=== PATIENT | male | born 2000 | race Two or more races ===

== ENCOUNTER 2018-07-02 12:24 | Emergency (ER) | payer BC, OTHER ==
--- OUTSIDE RECORDS SUMMARY | 2018-07-02 12:39 | XMS REPORT | Continuity of Care Document ---
:2000 External Reference #:[id number] Author Name Hector Rodriguez M.D. Address [address] [place] [address] Care Team Providers Name Role Phone Chris Diaz M.D. Primary Care Physician Unavailable Payers Date Identification Numbers Payment Provider Subscriber Effective: Policy Number: [employer] Kailashalba Nowak 2013 [id number] PayID: [id number] [address] [address] [place] [address] Effective: 2013 Policy Number: [id number] [facility] Marino Nowak PayID: [id number] [address] [place] [address] Advance Directives Description No Information Available Problems Description No Active Problems Family History Description No Information Available Social History Type Date Description Comments Sex Unknown ETOH Use Denies alcohol use Tobacco Use Start: Unknown Patient has never smoked Recreational Drug Use Denies Drug Use Smoking Status Reviewed: 06/30/18 Patient has never smoked Currently Active Patient is currently sexually active Condom Use Always # Partners in a Lifetime 2 Allergies, Adverse Reactions, Alerts Date Description Reaction Status Severity Comments 01/30/2014 Amoxicillin Urticaria Active Moderate 01/30/2014 Cephalexin Rash Active Mild Medications Medication Date Status Form Strength Qnty SIG Indications Ordering Provider No Active 09/17 Active Unknown Medications Azithromycin 09/07 Hx Tablets 500mg 5tabs one tablet J02.0 Valarie daily x 5 Uphoff, - days M.D. 09/16 Benzaclin 02/05 Hx Gel 1-5% 25gm apply to L70.0 affected Snedeker, - area twice M.D. 02/08 a day /2015 Retin-A 01/30 Hx Cream 0.05% 30gm apply to V20.2 Chris affected Snever, - area every M.D. 02/04 day at bedtime Tretinoin 01/26 Hx Cream 0.025% Every Day - 11/19 Claritin Hx Tablets 10mg take one Unknown /0000 tablet - daily as 02/08 needed for 2016 seasonal allergies Chlorpheniramine Hx Tablets 12mg 1 tab prn Unknown Maleate ER /0000 ER - 09/16 Medications Administered in Office Medication Date Status Form Strength Qnty SIG Indications Ordering Provider Immunization 12/10/ Administered Injection Nursing Administration 2017 Single Or Combination Immunization 11/08/ Administered Injection Chris Administration 2017 Emily Single Or M.D. Combination Immunization 02/09/ Administered Injection Narendra Adminstration 2+ 2015 Felder, Single Or M.D. Combination Immunization 02/09/ Administered Injection Narendra Administration 2015 Bradford Single Or M.D. Combination Immunization 02/05/ Administered Injection Chris Administration 2014 Emily Single Or M.D. Combination Immunization 04/02/ Administered Injection Nursing Administration 2013 Single Or Combination Immunizations CPT Code Status Date Vaccine Lot # [id number] Given 01/24/2018 Flu Quadrivalent [id number] Given 12/10/2017 Meningococcal B Vaccine [id number] 44612 Given 11/08/2017 Meningococcal B Vaccine [id number] 51135 Given 12/10/2016 Flu Quadrivalent 40967 Given 02/10/2016 Meningococcal Vaccine (Any Groups) For [id number] Subcutaneous Use 52840 Given 02/10/2016 Flu Quadrivalent [id number] 75623 Given 02/05/2015 Flu Quadrivalent [id number] 29332 Given 04/02/2014 Flu Quadrivalent [id number] 53192 Given 01/26/2013 Influenza Virus Vaccine, Split Virus, 6-35 Months Age Intramuscul 87147 Given 07/22/2012 Gardasil 56006 Given 03/23/2012 Gardasil 95387 Given 01/19/2012 Influenza Virus Vaccine, Split Virus, 6-35 Months Age Intramuscul 55257 Given 01/19/2012 Gardasil 94558 Given 01/06/2011 Influenza Virus Vaccine Intranasal 54415 Given 01/01/2010 Influenza Virus Vaccine Intranasal 78306 Given 10/02/2009 Menactra 00960 Given 10/02/2009 Tdap 74315 Given 10/02/2009 Typhoid Injectable 24851 Given 10/02/2009 Hepatitis A Pediatric 85617 Given 02/27/2009 Influenza Virus Vaccine, Pandemic Formulation, Live, Intranasal 55847 Given 2008 Hepatitis A Pediatric 15310 Given 2008 Influenza Virus Vaccine Intranasal 95555 Given 2008 Varicella (Chicken Pox) Vaccine 72647 Given 12/03/2003 Polio Injectable 54250 Given 12/03/2003 MMR Vaccine, Live, For Subcutaneous Use 55563 Given 12/03/2003 DTaP Vaccine Younger Than 7 06841 Given 04/25/2002 Prevnar 13 89449 Given 02/04/2000 DTaP Vaccine Younger Than 7 04569 Given 02/04/2000 Hib Vaccine 27133 Given 11/03/1999 Varicella (Chicken Pox) Vaccine 53745 Given 11/03/1999 Polio Injectable 49284 Given 11/03/1999 MMR Vaccine, Live, For Subcutaneous Use 46460 Given 05/01/1999 Hib Vaccine 18551 Given 05/01/1999 DTaP Vaccine Younger Than 7 48702 Given 05/01/1999 Hepatitis B Vaccine Pediatric/Adolescent 80093 Given 03/11/1999 Hepatitis B Vaccine Pediatric/Adolescent 72237 Given 03/11/1999 Polio Injectable 15137 Given 03/11/1999 DTaP Vaccine Younger Than 7 86819 Given 03/11/1999 Hib Vaccine 19406 Given 1998 Polio Injectable 55761 Given 1998 DTaP Vaccine Younger Than 7 91462 Given 1998 Hib Vaccine 73119 Given 1998 Hepatitis B Vaccine Pediatric/Adolescent Vital Signs Date Vital Result Comment 06/30/2018 10:17am Body Temperature 99.8 F Heart Rate 78 /min Respiratory Rate 12 /min BP Systolic 122 mmHg BP Diastolic 70 mmHg Weight 177.50 lb Weight 80.514 kg Height 70 inches 5'10" BMI (Body Mass Index) 25.5 kg/m2 Body Mass Index Percentile 77 % Height Percentile 56 % Weight Percentile 79th 11/08/2017 2:20pm Body Temperature 98.4 F Heart Rate 64 /min Respiratory Rate 18 /min BP Systolic 130 mmHg BP Diastolic 56 mmHg Weight 182.12 lb Weight 82.612 kg Height 69.6 inches 5'9.60" BMI (Body Mass Index) 26.4 kg/m2 Body Mass Index Percentile 85 % Height Percentile 51 % Weight Percentile 85th 09/17/2017 9:21am Body Temperature 98.8 F Heart Rate 75 /min Respiratory Rate 12 /min BP Systolic 119 mmHg BP Diastolic 70 mmHg Blood Pressure Percentile 37 % Weight 172.00 lb Weight 78.019 kg Height 70 inches 5'10" BMI (Body Mass Index) 24.7 kg/m2 Body Mass Index Percentile 75 % Height Percentile 57 % Weight Percentile 77th 09/07/2017 9:16am Body Temperature 98.3 F Heart Rate 83 /min Respiratory Rate 14 /min BP Systolic 128 mmHg BP Diastolic 72 mmHg Blood Pressure Percentile 0 % Weight 178.00 lb Weight 80.741 kg Height Percentile 3 % Weight Percentile 82nd 05/29/2017 8:50am Body Temperature 97.9 F Heart Rate 70 /min Respiratory Rate 14 /min BP Systolic 130 mmHg BP Diastolic 78 mmHg Blood Pressure Percentile 0 % Weight 172.75 lb Weight 78.359 kg Weight Percentile 79th 02/10/2016 10:31am Body Temperature 98.7 F Heart Rate 59 /min Respiratory Rate 12 /min BP Systolic 117 mmHg BP Diastolic 68 mmHg Blood Pressure Percentile 38 % Weight 155.50 lb Weight 70.535 kg Height 69.75 inches 5'9.75" BMI (Body Mass Index) 22.5 kg/m2 Body Mass Index Percentile 64 % Height Percentile 59 % Weight Percentile 67th 02/05/2015 11:27am Body Temperature 98.3 F Heart Rate 61 /min Respiratory Rate 12 /min BP Systolic 113 mmHg BP Diastolic 64 mmHg Blood Pressure Percentile 32 % Weight 156.38 lb Weight 70.932 kg Height 69.25 inches 5'9.25" BMI (Body Mass Index) 22.9 kg/m2 Body Mass Index Percentile 75 % Height Percentile 60 % Weight Percentile 77th 01/30/2014 9:35am Body Temperature 98.7 F Heart Rate 62 /min Respiratory Rate 12 /min BP Systolic 124 mmHg BP Diastolic 70 mmHg Blood Pressure Percentile 76 % Weight 145.88 lb Weight 66.169 kg Height 69 inches 5'9" BMI (Body Mass Index) 21.5 kg/m2 Body Mass Index Percentile 69 % Height Percentile 71 % Weight Percentile 77th 01/26/2013 12:00pm Heart Rate 76 /min Respiratory Rate 22 /min BP Systolic 120 mmHg BP Diastolic 68 mmHg Weight 140.00 lb Height 68.5 inches 01/19/2012 12:00pm Heart Rate 70 /min Respiratory Rate 12 /min BP Systolic 112 mmHg BP Diastolic 65 mmHg Weight 116.12 lb Height 65.25 inches 01/06/2011 12:00pm Heart Rate 84 /min Respiratory Rate 16 /min BP Systolic 116 mmHg BP Diastolic 69 mmHg Weight 94.19 lb Height 60 inches 01/01/2010 12:00pm Heart Rate 88 /min Respiratory Rate 12 /min BP Systolic 100 mmHg BP Diastolic 58 mmHg Weight 86.25 lb Height 57.25 inches 10/02/2009 12:00pm Heart Rate 68 /min Respiratory Rate 12 /min BP Systolic 112 mmHg BP Diastolic 70 mmHg Weight 79.00 lb 03/20/2009 11:00am Heart Rate 86 /min Respiratory Rate 20 /min BP Systolic 106 mmHg BP Diastolic 70 mmHg Weight 73.00 lb 2008 12:00pm Heart Rate 88 /min Respiratory Rate 16 /min BP Systolic 112 mmHg BP Diastolic 68 mmHg Weight 76.75 lb Height 55 inches 01/18/2008 12:00pm Heart Rate 78 /min Respiratory Rate 18 /min BP Systolic 98 mmHg BP Diastolic 50 mmHg Weight 67.50 lb 12/16/2007 12:00pm Heart Rate 90 /min Respiratory Rate 18 /min BP Systolic 92 mmHg BP Diastolic 64 mmHg Weight 66.75 lb Height 53.5 inches 06/21/2007 11:00am Heart Rate 100 /min Respiratory Rate 20 /min BP Systolic 90 mmHg BP Diastolic 70 mmHg Weight 62.00 lb 12/14/2006 12:00pm Heart Rate 98 /min Respiratory Rate 14 /min BP Systolic 110 mmHg BP Diastolic 60 mmHg Weight 60.00 lb Height 50.75 inches 04/21/2006 11:00am Heart Rate 80 /min Respiratory Rate 12 /min BP Systolic 88 mmHg BP Diastolic 60 mmHg Weight 56.50 lb 03/27/2006 11:00am Heart Rate 88 /min Respiratory Rate 20 /min BP Systolic 86 mmHg BP Diastolic 54 mmHg Weight 55.25 lb 12/09/2005 12:00pm Heart Rate 92 /min Respiratory Rate 20 /min BP Systolic 84 mmHg BP Diastolic 60 mmHg Weight 54.00 lb Height 48.5 inches 10/19/2005 12:00pm Heart Rate 112 /min Respiratory Rate 24 /min BP Systolic 100 mmHg BP Diastolic 58 mmHg Weight 51.75 lb Results Test Date Facility Test Result H/L Range Note CBC Auto Diff 06/30/2018 [facility] White Blood 5.3 10^3/uL N 3.5-10.[address] [place] [address] Red Blood Count 5.01 10^6/uL N 4.18-5.48 Hemoglobin 15.5 g/dL N 14.0-18.0 Hematocrit 45 % N 36-46 Mean Corpuscular Volume 90 fL N 80-94 Mean Corpuscular Hemoglobin 31 pg N 27-31 Mean Corpuscular HGB Conc 34 g/dL N 31-36 Red Cell Distribution Width 13 % N 10.5-15 Platelet Count 183 10^3/uL N 150-450 Mean Platelet Volume 8.3 fL N 7.4-10.4 Abs Neutrophils 3.4 10^3/uL N 1.5-7.7 Abs Lymphocytes 0.8 10^3/uL Low 1.0-4.8 Abs Monocytes 1.0 10^3/uL High 0-0.8 Abs Eosinophils 0 10^3/uL N 0-0.6 Abs Basophils 0 10^3/uL N 0-0.2 Abs Nucleated RBC 0 10^3/uL Granulocyte % 64.4 % Lymphocyte % 15.4 % Monocyte % 19.5 % Eosinophil % 0.1 % Basophil % 0.6 % Nucleated Red Blood Cells % 0.1 Laboratory test 06/30/2018 [facility] C Reactive 8.33 mg/L High <8.[address] [place] [address] Laboratory test 06/30/2018 [facility] Creatine 539 U/L High 10 -[address] Kinase([place]) [place] [address] Comp Metabolic 06/30/2018 [facility] Sodium 137 mmol/L N 135- [address] [place] [address] Potassium 4.4 mmol/L N 3.5-5.0 Chloride 104 mmol/L N 101-111 Co2 Carbon Dioxide 27 mmol/L N 22-32 Anion Gap 6 mmol/L N 2-11 Glucose 103 mg/dL High 70-100 Blood Urea Nitrogen 13 mg/dL N 6-24 Creatinine 1.41 mg/dL High 0.67-1.17 BUN/Creatinine Ratio 9.2 N 8-20 Calcium 9.3 mg/dL N 8.6-10.3 Total Protein 6.5 g/dL N 6.4-8.9 Albumin 4.5 g/dL N 3.2-5.2 Globulin 2.0 g/dL N 2-4 Albumin/Globulin Ratio 2.3 N 1-3 Total Bilirubin 0.70 mg/dL N 0.2-1.0 Alkaline Phosphatase 52 U/L N 34-104 Alt 19 U/L N 7-52 Ast 26 U/L N 13-39 Egfr Non- 64.8 >60 Egfr 78.3 >60 1 Laboratory test 06/30/2018 [facility] Monospot Negative Negative [address] [place] [address] Laboratory test 09/07/2017 [facility] .Quick Strep PCR + finding [address] [place] [address] [phone] Brian Menchaca 06/04/2017 [facility] Z#Other <pending> Evaluation Observations Vitamin D 1,25 + 06/04/2017 [facility] Vitamid D,25 <pending> 25 Hydroxy Hydroxy Vitamin D 1,25 Dihydroxy <pending> Lyme Disease SCRN 06/04/2017 [facility] Misc Test - Put Test <pending > With Confirm In Order TSH+Free T4 06/04/2017 [facility] TSH Thyroid <pending> Stimulating Horm T4 Free Thyroxine Mass/Vol <pending> Laboratory test 06/04/2017 [facility] Esr Sedimentation <pending> finding Rate C-Reactive Protein <pending> CMP Panel (14 Test) 06/04/2017 [facility] Albumin <pending> Alt - SGPT <pending> Calcium <pending> Carbon Dioxide <pending> Chloride <pending> Creatinine <pending> Glucose Serum <pending> Alkaline Phosphatase <pending> Potassium <pending> Protein Total <pending> Sodium <pending> Ast - Sgot <pending> BUN - Urea Nitrogen <pending> .CBC W/Auto Differential 06/04/2017 [facility] White Blood <pending> Count Absolute Lymphocytes <pending> Absolute Monocytes <pending> Absolute Neutrophils Auto CNT <pending> Lymph% <pending> [place]% Auto Count BLD <pending> Neutrophil % <pending> RBC Red Blood Count <pending> Hemoglobin Blood <pending> Hematocrit <pending> MCV (Corpuscular Volume) <pending> MCH (Corpuscular Hemoglobin) <pending> MCHC (Corpuscular Hemog Conc) <pending> RDW <pending> Platelet Count <pending> MPV <pending> .Cholesterol 02/10/2016 [facility] Cholesterol Total 180 Screening [address] Mass/[place] [address] [phone] HDL Cholesterol Mass/Vol 72 Triglycerides Ser/Plas Mass/VL 80 LDL Cholesterol Mass/Vol 93 Non-HDL Cholesterol QN Ser/PLS 109 LDL/HDL Ratio 1.3 Order 02/05/2015 [facility] EKG <pending> [address] [place] [address] [phone] .CBC W/Auto 01/30/2014 [facility] White Blood 5.9 Differential [address] [place] [address] Auto CNT [phone] Absolute Lymphocytes 2.2 Absolute Monocytes 0.7 Absolute Neutrophils Auto CNT 3.0 Lymph% 36.6 [place]% Auto Count BLD 11.8 Neutrophil % 51.6 RBC Red Blood Count 5.77 Hemoglobin Blood 18.4 Hematocrit 53.1 MCV (Corpuscular Volume) 92.0 MCH (Corpuscular Hemoglobin) 31.9 MCHC (Corpuscular Hemog Conc) 34.7 RDW 12.3 Platelet Count Blood Auto CNT 270. MPV 7.9 1 Because ethnic data is not always readily available, this report includes an eGFR for both -Americans and non- Americans. The National Kidney Disease Education Program (NKDEP) does not endorse the use of the MDRD equation for patients that are not between the ages of 18 and 70, are , have extremes of body size, muscle mass, or nutritional status, or are non- or non-. According to the National Kidney Foundation, irrespective of diagnosis, the stage of the disease is based on the level of kidney function: Stage Description GFR(mL/min/1.73 m(2)) 1 Kidney damage with normal or decreased GFR 90 2 Kidney damage with mild decrease in GFR 60-89 3 Moderate decrease in GFR 30-59 4 Severe decrease in GFR 15-29 5 Kidney failure <15 (or dialysis) 2 Would you like an EBV if Monospot is Negative?: Y Procedures Date Code Description Status 11/08/2017 21624 Vision Screening Completed 11/08/2017 16826 Admin Patient Focused Health Risk Assessment Instrument Completed 11/08/2017 14050 Brief Emotional/Behav Assessment W/ Scoring Doc Per Completed Standard Inst 11/08/2017 28554 Hearing Screen, Pure Tone, Air Completed 02/10/2016 03356 Vision Screening Completed 02/10/2016 47976 Hearing Screen, Pure Tone, Air Completed 02/10/2016 29042 Collection Of Capillary Blood Specimen Completed 02/05/2015 02509 Vision Screening Completed 02/05/2015 76275 Hearing Screen, Pure Tone, Air Completed 01/30/2014 02648 Vision Screening Completed 01/30/2014 73608 Hearing Screen, Pure Tone, Air Completed 01/30/2014 12686 Collection Of Capillary Blood Specimen Completed Encounters Type Date Location Provider Dx Diagnosis Office Visit 06/30/2018 [facility] Hector Rodriguez, R50.9 Fever, unspecified 11:00a M.D. Office Visit 11/08/2017 [facility] Chris Diaz Z00.00 Encntr for general 2:15p M.D. adult medical exam w/o abnormal findings Z13.89 Encounter for screening for other disorder Z71.89 Other specified counseling Office Visit 09/17/2017 9:30a [facility] Brenna R10.32 Left lower quadrant Rudert, [employer] pain Office Visit 09/07/2017 9:00a [facility] Valarie J02.0 Streptococcal Raine Cid pharyngitis Office Visit 05/29/2017 8:45a [facility] LAWRENCE Blakely R53.83 Other fatigue Office Visit 02/10/2016 11:00a [facility] Narendra Felder Z00.129 Encntr for routine M.D. child health exam w/o abnormal findings Office Visit 02/05/2015 11:30a [facility] Chris Z00.129 Encntr for routine Raine Diaz child health exam w/o abnormal findings R00.2 Palpitations L70.0 Acne vulgaris Office Visit 01/30/2014 9:30a [facility] Chris Diaz V20.2 Routine Infant Or M.D. Child Health Check 706.1 Acne Other 367.1 Myopia 850.9 Concussion Unspec v65.42 Counseling On Substance Use & Abuse Plan of Treatment 06/30/2018 - Hector Rodriguez M.D.R50.9 Fever, unspecifiedComments:Fever What is a fever?A fever means the body temperature is above normal. Your child has a fever if his:Rectal temperature is over 100.4F (38.0C).Oral temperature is over 99.5F (37.5C).Axillary (armpit) temperature is over 99.0F (37.2C).Ear (tympanic ) temperature is over 100.4F (38C). (This measuring method is not reliable for babies under 6 months old.)Pacifier temperature is over 100F (37.8C). ( Thepacifier thermometer works well for babies over 3 months old.)Tactile (touch ) fever is the impression that your child has a fever because he feels hot to the touch. Checking a fever this way is more accurate than we used to think. But if you're going to call the doctor, use a thermometer to measure the fever.The body's average temperature when it is measured orally is 97.6F (36.5C) . Oral temperature normally can change from a low of 95.8F (35.5C) in the morning to a high of 99.4F (37.5C) in the afternoon. Mildly increased temperature (100.4 to 101.3F, or 38 to 38.5C) can be caused by exercise, heavy clothing, a hot bath, or hot weather. Warm food or drink can also raise the oral temperature. If you suspect such an effect on the temperature of your child , take his temperature again in a half hour.What is the cause?Fever is a symptom , not a disease. It is the body's normal response to infections. Fever helps fight infections by turning on the body's immune system. Most fevers (100 to 104F, or 37.8 to 40C) that children get are not harmful. Most are caused by viral illnesses such as colds or the flu. Some are caused by bacterial illnesses such as Strep throat or bladder infections. Teething doesnot cause fever.How long will it last?Most fevers with viral illnesses range from 101F to 104F (38.3C to 40C) and last for 2 to 3 days. In general, the height of the fever doesn't relate to the seriousness of the illness. How sick your child acts is what counts. Fever does not cause permanent harm. Brain damage occurs only if the body temperature is over 108F (42C). Fortunately, the brain's thermostat keeps untreated fevers well below this level.While all children get fevers, only 4% develop a briefseizure from the fever. This type of seizure is generally harmless, but a child who has a febrile seizure should always be checked by a healthcare provider. If your child has had high fevers without seizures, your child is probably safe.How can I take care of my child?Extra fluids and less clothingEncourage your child to drink extra fluids, but do not force him to drink. Popsicles and iced drinks arehelpful. Body fluids are lost during fevers because of sweating.Bundling can be dangerous. Clothing should be kept to a minimum because most heat is lost through the skin. Do not bundle up your child; it will cause a higher fever. During the time your child feels cold or is shivering (the chills), give him a light blanket.If the fever is less than 102F this is the only treatment needed. Fever medicines are not necessary.Medicines to reduce feverRemember that fever is helping your child fight the infection. Fevers only need to be treated with medicine if they cause discomfort. That usually means fevers above 102F (39C).These medicines start working in about 30 minutes, and 2 hours after they are given, these drugs will reduce the fever 2F to 3F (1C to 2C). Medicines do not bring the temperature down to normal unless the temperature was not very high before the medicine was given. Repeated dosagesof the drugs will be necessary because the fever will go up and down until the illness runs its course. If your child is sleeping, don't awaken him for medicines.Acetaminophen: Children older than 3 months of age can be given acetaminophen (Tylenol). Give the correct dosage for your child's weight every 4 to 6 hours.Ibuprofen: Ibuprofen (Advil, Motrin) is similar to acetaminophen in its ability to lower fever. Its safety record is also similar. The FDA has approved it for infants over 6 months of age. One advantage ibuprofen has over acetaminophen is a longer lasting effect (6 to 8 hours instead of4 to 6 hours). Children with special problems requiring a longer period of fever control may do better with ibuprofen. Give the correct dosage for your child's weight every 6 to 8 hours.CAUTION: The dropper that comes with one product should not be used with other brands.Avoid aspirin: Doctors recommend that children (through age 21 years) not take aspirin if they have any symptoms of a cold or viralinfection, such as a fever, cough, or sore throat. Aspirin taken during a viral infection, such as chickenpox or flu, has been linked to a severe illness called Pepito's syndrome. If you have teens, warnthem to avoid aspirin.See also Dosage informationSpongingSponging is usually not necessary to reducefever. Never sponge your child without giving him acetaminophen or ibuprofen first. Sponge immediately only in situations such as heatstroke, delirium, a seizure from fever, or any fever over 106F ( 41.1C). In other cases sponge your child only if the fever is over 104F (40C), and hasn't come down whenyou take the temperature again 30 minutes after your child has taken acetaminophen or ibuprofen. Until acetaminophen or ibuprofen has taken effect (by resetting the body's thermostat to a lower level),sponging will just cause shivering which is the body's way of trying to raise the temperature.If youdo sponge your child, sponge him in lukewarm water (85 to 90F , or 29 to 32C). Use slightly cooler water for emergencies. Sponging works much faster than immersion, so sit your child in 2 inches of water and keep wetting the skin surface. Cooling comes from evaporation of water. If your child shivers , raise the water temperature or stop sponging until the acetaminophen or ibuprofen takes effect. Don'texpect to get the temperature down below 101F ( 38.3C). Don't add rubbing alcohol to the water; it can be breathed in and cause a coma.When should I call my child's healthcare provider?Call IMMEDIATELY if: Your child is less than 3 months old.The fever is over 104F (40C) and has not improved 2 hours after giving fever medicine.Your child looks or acts very sick (fever along with severe headache, confusion, stiff neck, trouble breathing, rash, or refusing to drink).Call within 24 hours if:Your child is3 to 6 months old (unless the fever is due to a DTaP shot).Your child has had a fever more than 24 hours without an obvious cause or location of infection AND your child is less than 2 years old.Your child has had a fever for more than 3 days.The fever went away for over 24 hours and then returned.Youhave other concerns or questions.Written by Rick Ortega MD, author of "Your Child's Health," [employer].Published by [employer].
--- OUTSIDE RECORDS SUMMARY | 2018-07-02 12:39 | XMS REPORT | Continuity of Care Document ---
:2000 External Reference #:[id number] Author Name Lisseth Tabor M.D. Address [address] [place] [address] Care Team Providers Name Role Phone Chris Diaz M.D. Primary Care Physician Unavailable Payers Date Identification Numbers Payment Provider Subscriber Effective: Policy Number: [employer] Alan Nowak 2013 [id number] PayID: [id number] [address] [address] [place] [address] Effective: 2013 Policy Number: [id number] [facility] Marino Nowak PayID: [id number] [address] [place] [address] Advance Directives Description No Information Available Problems [...] Form Strength Qnty SIG Indications Ordering Provider Tylenol Extra Active Tablets 500mg 2 tab by Unknown Strength /0000 mouth 07/02/18 0600 No Active 09/17 Hx Unknown Medications /2017 - 07/02 Azithromycin 09/07 Hx Tablets 500mg 5tabs one tablet J02.0 Valarie /2017 daily x 5 Uphoff, - days M.D. 09/16 Benzaclin 02/05 Hx Gel 1-5% 25gm apply to L70.0 Chris affected Emily, - area twice M.D. 02/08 a /2016 Retin-A 01/30 Hx Cream 0.05% 30gm apply to V20.2 affected Emily, - area every M.D. 02/04 day at /2014 bedtime Tretinoin 01/26 Hx Cream 0.025% Every Day - 11/19 Claritin Hx Tablets 10mg take one Unknown /0000 tablet - daily as 02/08 needed for seasonal allergies Chlorpheniramine Hx Tablets 12mg 1 tab prn Unknown Maleate ER /0000 ER - 09/16 Medications Administered in Office Medication Date Status Form Strength Qnty SIG Indications Ordering Provider Immunization 12/10/ Administered Injection Nursing Administration 2017 Single Or Combination Immunization 11/08/ Administered Injection Chris Administration 2017 Snedeker, Single Or M.D. Combination Immunization 02/09/ Administered Injection Narendra Adminstration 2+ 2015 Bradford Single Or M.D. Combination Immunization 02/09/ Administered Injection Narendra Administration 2015 Bradford Single Or M.D. Combination Immunization 02/05/ Administered Injection Chris Administration 2014 Snshadyr, Single Or M.D. Combination Immunization 04/02/ Administered Injection Nursing Administration 2013 Single Or Combination Immunizations CPT Code Status Date Vaccine Lot # [id number] Given 01/24/2018 Flu Quadrivalent 51140 Given 12/10/2017 Meningococcal B Vaccine [id number] 87818 Given 11/08/2017 Meningococcal B Vaccine [id number] 01786 Given 12/10/2016 Flu Quadrivalent 20302 Given 02/10/2016 Meningococcal Vaccine (Any Groups) For [id number] Subcutaneous Use 90420 Given 02/10/2016 Flu Quadrivalent [id number] 55899 Given 02/05/2015 Flu Quadrivalent [id number] 44029 Given 04/02/2014 Flu Quadrivalent [id number] 53456 Given 01/26/2013 Influenza Virus Vaccine, Split Virus, 6-35 Months Age Intramuscul 39101 Given 07/22/2012 Gardasil 08131 Given 03/23/2012 Gardasil 35581 Given 01/19/2012 Influenza Virus Vaccine, Split Virus, 6-35 Months Age Intramuscul 75409 Given 01/19/2012 Gardasil 88892 Given 01/06/2011 Influenza Virus Vaccine Intranasal 50686 Given 01/01/2010 Influenza Virus Vaccine Intranasal 43736 Given 10/02/2009 Menactra 42112 Given 10/02/2009 Tdap 06705 Given 10/02/2009 Typhoid Injectable 08477 Given 10/02/2009 Hepatitis A Pediatric 91265 Given 02/27/2009 Influenza Virus Vaccine, Pandemic Formulation, Live, Intranasal 44144 Given 2008 Hepatitis A Pediatric 26476 Given 2008 Influenza Virus Vaccine Intranasal 43419 Given 2008 Varicella (Chicken Pox) Vaccine 43265 Given 12/03/2003 Polio Injectable 98230 Given 12/03/2003 MMR Vaccine, Live, For Subcutaneous Use 41306 Given 12/03/2003 DTaP Vaccine Younger Than 7 16747 Given 04/25/2002 Prevnar 13 78343 Given 02/04/2000 DTaP Vaccine Younger Than 7 08845 Given 02/04/2000 Hib Vaccine 98762 Given 11/03/1999 Varicella (Chicken Pox) Vaccine 60687 Given 11/03/1999 Polio Injectable 05455 Given 11/03/1999 MMR Vaccine, Live, For Subcutaneous Use 63302 Given 05/01/1999 Hib Vaccine 06402 Given 05/01/1999 DTaP Vaccine Younger Than 7 88663 Given 05/01/1999 Hepatitis B Vaccine Pediatric/Adolescent 93473 Given 03/11/1999 Hepatitis B Vaccine Pediatric/Adolescent 18615 Given 03/11/1999 Polio Injectable 32539 Given 03/11/1999 DTaP Vaccine Younger Than 7 51148 Given 03/11/1999 Hib Vaccine 57569 Given 1998 Polio Injectable 82162 Given 1998 DTaP Vaccine Younger Than 7 21955 Given 1998 Hib Vaccine 00628 Given 1998 Hepatitis B Vaccine Pediatric/Adolescent Vital Signs Date Vital Result Comment 07/02/2018 11:28am Body Temperature 98.9 F Heart Rate 88 /min Respiratory Rate 18 /min BP Systolic 118 mmHg BP Diastolic 70 mmHg Weight 178.25 lb Weight 80.854 kg Weight Percentile 80th 06/30/2018 10:17am Body Temperature 99.8 F Heart [...] Date Facility Test Result H/L Range Note .Urinalysis DIP 07/02/2018 [facility] Ua Color yellow Only [address] [place], [place] [address] [phone] Ua Clarity clear Ua Glucose negative Ua Bilirubin negative Ua Ketones negative Ua Specific [place] 1.010 Ua Blood Qual negative Ua PH Test Strip 7.0 Ua Protein negative Ua Urobilinogen negative Ua Nitrate negative Ua Leukocytes negative CBC Auto Diff 06/30/2018 [facility] White Blood 5.3 10^3/uL N 3.5-10.[address] [place] [address] Red Blood Count 5.01 10^6/uL N 4.18-5.48 [...] Blood Cells % 0.1 Laboratory test 06/30/2018 [facility] C Reactive 8.33 mg/L High <8.[address] [place] [address] Laboratory test 06/30/2018 [facility] Creatine 539 U/L High 10 -223 finding [address] [facility] Kinase(CK) [place] [address] Comp Metabolic 06/30/2018 [facility] Sodium 137 mmol/L N 135- 145 Panel [address] [place] [address] Potassium 4.4 mmol/L N 3.5-5.0 Chloride 104 [...] Egfr 78.3 >60 1 Laboratory test 06/30/2018 [facility] Monospot Negative Negative 2 finding [address] [place] [address] Laboratory test 09/07/2017 [facility] .Quick Strep PCR + finding [address] [place], [place] [id number] [phone] Brian Menchaca 06/04/2017 [facility] Z#Other <pending> [...] Absolute Neutrophils Auto CNT <pending> Lymph% <pending> Deuel% Auto Count BLD <pending> Neutrophil % <pending> RBC Red Blood Count <pending> Hemoglobin Blood <pending> Hematocrit <pending> MCV (Corpuscular Volume) <pending> MCH (Corpuscular Hemoglobin) <pending> MCHC (Corpuscular Hemog Conc) <pending> RDW <pending> Platelet Count <pending> MPV <pending> .Cholesterol 02/10/2016 [facility] Cholesterol Total [address] Mass/[place] [address] [phone] HDL Cholesterol Mass/Vol 72 Triglycerides Ser/Plas Mass/VL 80 LDL Cholesterol Mass/Vol 93 Non-HDL Cholesterol QN Ser/PLS 109 LDL/HDL Ratio 1.3 Order 02/05/2015 [facility] EKG <pending> [address] [place], [place] [id number] [phone] .CBC W/Auto 01/30/2014 [facility] White Blood 5.[address] [place] [address] Auto CNT [phone] Absolute Lymphocytes 2.2 Absolute Monocytes 0.7 Absolute Neutrophils Auto CNT 3.0 Lymph% 36.6 Deuel% Auto Count BLD 11.8 Neutrophil % 51.6 [...] Y Procedures Date Code Description Status 11/08/2017 51268 Vision Screening Completed 11/08/2017 67125 Admin Patient Focused Health Risk Assessment Instrument Completed 11/08/2017 76939 Brief Emotional/Behav Assessment W/ Scoring Doc Per Completed Standard Inst 11/08/2017 78278 Hearing Screen, Pure Tone, Air Completed 02/10/2016 33884 Vision Screening Completed 02/10/2016 69767 Hearing Screen, Pure Tone, Air Completed 02/10/2016 38304 Collection Of Capillary Blood Specimen Completed 02/05/2015 47756 Vision Screening Completed 02/05/2015 69702 Hearing Screen, Pure Tone, Air Completed 01/30/2014 02552 Vision Screening Completed 01/30/2014 49924 Hearing Screen, Pure Tone, Air Completed 01/30/2014 97047 Collection Of Capillary Blood Specimen Completed Encounters Type Date Location Provider Dx Diagnosis Office Visit 06/30/2018 [facility] Hector Rodriguez, R50.9 Fever, unspecified 11:00a M.D. Office Visit 11/08/2017 [facility] Chris Diaz, Z00.00 Encntr for general 2:15p M.D. adult medical exam w/o abnormal findings Z13.89 Encounter for screening for other disorder Z71.89 Other specified counseling Office Visit 09/17/2017 9:30a [facility] Brenna R10.32 Left lower quadrant Rudert, SANJIV pain Office Visit 09/07/2017 9:00a [facility] Valarie J02.0 Streptococcal Uphoff, M.D. pharyngitis Office Visit 05/29/2017 8:45a [facility] LAWRENCE Blakely R53.83 Other fatigue Office Visit 02/10/2016 11:00a [facility] Narendra Felder Z00.129 Encntr for routine M.D. child health exam w/o abnormal findings Office Visit 02/05/2015 11:30a [facility] Chris Z00.129 Encntr for routine Raine Diaz child health exam w/o abnormal findings R00.2 Palpitations L70.0 Acne vulgaris Office Visit 01/30/2014 9:30a [facility] Chris Diaz, V20.2 Routine Infant Or M.D. Child Health Check 706.1 Acne Other 367.1 Myopia 850.9 Concussion Unspec v65.42 Counseling On Substance Use & Abuse Plan of Treatment No Information Available
[2018-07-02] MEDS ORDERED: Acetaminophen TAB* 325 MG PO ONE (13:14)
[2018-07-02] MEDS ORDERED: NS 0.9% 1000 ML** 1,000 ML IV ONE ×2 (13:14→16:25)
[2018-07-02 13:45] LABS: ABS Basophils 0 10^3/ul (0-0.2); ABS Eosinophils 0 10^3/ul (0-0.6); ABS Lymphocytes 0.5 10^3/ul (1.0-4.8); ABS Monocytes 0.9 10^3/ul (0-0.8); ABS Neutrophils 4.3 10^3/ul (1.5-7.7); ABS Nucleated RBC 0 10^3/ul; Eosinophil % 0.3 %; Hematocrit 48 % (36-46); Hemoglobin 16.3 g/dL (14.0-18.0); Lymphocyte % 9.1 %; Mean Corpuscular HGB Conc 34 g/dL (31-36); Mean Corpuscular Hemoglobin 31 pg (27-31); Mean Corpuscular Volume 90 fL (80-94); Mean Platelet Volume 7.7 fL (7.4-10.4); Nucleated Red Blood Cells % 0.2; Platelet Count 188 10^3/uL (150-450); Red Blood Count 5.28 10^6 /uL (4.18-5.48); Red Cell Distribution Width 12 % (10.5-15); White Blood Count 5.8 10^3/uL (3.5-10.8)
--- NOTE | 2018-07-02 13:49 | ED ---
HPI Febrile Illness - HPI Summary HPI Summary: Patient is a 17-year-old male who presents to the ED with a persistent fever 11 days which runs between 101 and 102. He is also endorsing body aches throughout, worse to the bilateral anterior thighs and lower back. He has been endorsing worsening darkened urine as well. Denies any symptoms of obstruction or D UTI symptoms including urgency, frequency, incontinence, burning. No history of kidney stones. He states he has been playing a lot of lacrosse recently and also lifting weights despite feeling feverish. He is endorsing sweats and chills, these are worse at night. He has been taking ibuprofen and Tylenol with minimal relief, however only started this 3 days ago. This is his fourth visit to see a practitioner in the last week and a half. Labs were obtained, Monospot, strep, flu, all which were negative. He denies any neck stiffness or neck pain, denies any photophobia. He does endorse a headache although this is mild, rated at 2/10. He was sent here by Dr. Tabor for further evaluation. - History of Current Complaint Chief Complaint: EDFever Time Seen by Provider: 07/02/18 13:03 Hx Obtained From: Patient, Family/Brush Filler Hand Onset/Duration: Started Hours Ago Timing: Constant Initial Severity: Moderate Current Severity: Moderate Pain Intensity: 8 Pain Scale Used: 0-10 Numeric Aggravating Factors: Nothing Alleviating Factors: Nothing Associated Signs and Symptoms: Joint Pain, Myalgia, Nausea, Night Sweats - Risk Factors Pseudomonas Risk Factors: Negative Serious Bacterial Infection Risk Factors: Negative - Allergy/Home Medications Allergies/Adverse Reactions: Allergies Allergy/AdvReac Type Severity Reaction Status Date / Time amoxicillin [From Augmentin] Allergy Unknown Verified 07/02/18 13:27 Reaction Details cefprozil Allergy Unknown Verified 07/02/18 13:27 Reaction Details clavulanic acid Allergy Unknown Verified 07/02/18 13:27 Reaction Details PMH/Surg Hx/FS Hx/Imm Hx Previously Healthy: Yes Endocrine/Hematology History: Denies: Hx Anticoagulant Therapy, Hx Diabetes, Hx Thyroid Disease Cardiovascular History: Denies: Hx Hypercholesterolemia, Hx Hypertension, Hx Pacemaker/ICD, Hx Peripheral Vascular Disease Respiratory History: Denies: Hx Asthma Musculoskeletal History: Denies: Hx Arthritis, Hx Osteoporosis Sensory History: Denies: Hx Cataracts, Hx Contacts or Glasses, Hx Glaucoma, Hx Hearing Aid Opthamlomology History: Denies: Hx Cataracts, Hx Contacts or Glasses, Hx Glaucoma Neurological History: Denies: Hx Headaches, Hx Seizures, Hx Transient Ischemic Attacks (TIA) Psychiatric History: Denies: Hx Anxiety, Hx Depression, Hx Panic Disorder - Surgical History Surgery Procedure, Year, and Place: TUBES IN EARS TODDLER - Immunization History Hx Pertussis Vaccination: No Immunizations Up to Date: Yes Infectious Disease History: No Infectious Disease History: Denies: Traveled Outside the [place] in Last 30 Days - Social History Occupation: Unemployed, Student Lives: Alone Alcohol Use: None Hx Substance Use: No Substance Use Type: Reports: None Hx Tobacco Use: No Smoking Status (MU): Never Smoked Tobacco Review of Systems Positive: Fever, Chills, Fatigue, Skin Diaphoresis Negative: Photophobia, Blurred Vision, Diplopia, Drainage, Erythema Negative: Sore Throat, Ear Ache Negative: Palpitations, Chest Pain Negative: Shortness Of Breath, Cough Negative: Abdominal Pain, Vomiting, Diarrhea, Nausea Positive: see HPI, other - darkened urine Positive: Arthralgia, Myalgia - most prominent to the anterior thighs and bilateral lower back without pain to the spine Negative: Rash, Bruising Positive: Headache - 2/10, Weakness. Negative: Paresthesia, Numbness, Syncope, Slurred Speech Psychological: Normal All Other Systems Reviewed And Are Negative: Yes Physical Exam Triage Information Reviewed: Yes Vital Signs On Initial Exam: Initial Vitals Temp Pulse Resp BP Pulse Ox 102.6 F 94 18 145/73 99 07/02/18 12:29 07/02/18 12:29 07/02/18 12:29 07/02/18 12:29 07/02/18 12:29 Vital Signs Reviewed: Yes Appearance: Positive: Ill-Appearing Skin: Positive: Diaphoretic - On reexamination only, Pale - On reexamination only Head/Face: Positive: Normal Head/Face Inspection Eyes: Positive: EOMI, YOSVANY, Conjunctiva Clear ENT: Positive: Pharynx normal, Uvula midline. Negative: Tonsillar swelling, Muffled voice, Dental tenderness, Sinus tenderness Neck: Positive: Supple, Nontender, No Lymphadenopathy Respiratory/Lung Sounds: Positive: Clear to Auscultation, Breath Sounds Present. Negative: Decreased Breath Sounds, Rales, Tracheal Deviation, Wheezes , Unable to speak in full sentences, Fatigue Cardiovascular: Positive: Pulses are Symmetrical in both Upper and Lower Extremities, Tachycardia. Negative: Leg Edema Left, Leg Edema Right Musculoskeletal: Positive: Normal, Strength/ROM Intact. Negative: Edema Left, Edema Right Neurological: Positive: Speech Normal Psychiatric: Positive: Normal, Affect/Mood Appropriate AVPU Assessment: Alert Diagnostics - Vital Signs Vital Signs Temp Pulse Resp BP Pulse Ox 07/02/18 12:29 102.6 F 94 18 145/73 99 - Laboratory Lab Results: Lab Results 07/02/18 Range/Units 13:23 WBC 5.8 (3.5-10.8) 10^3/uL RBC 5.28 (4.18-5.48) 10^6 /uL Hgb 16.3 (14.0-18.0) g/dL Hct 48 H (36-46) % MCV 90 (80-94) fL MCH 31 (27-31) pg MCHC 34 (31-36) g/dL RDW 12 (10.5-15) % Plt Count 188 (150-450) 10^3/uL MPV 7.7 (7.4-10.4) fL Neut % (Auto) 75.0 % Lymph % (Auto) 9.1 % Bryan % (Auto) 15.3 % Eos % (Auto) 0.3 % Baso % (Auto) 0.3 % Absolute Neuts (auto) 4.3 (1.5-7.7) 10^3/ul Absolute Lymphs (auto) 0.5 L (1.0-4.8) 10^3/ul Absolute Monos (auto) 0.9 H (0-0.8) 10^3/ul Absolute Eos (auto) 0 (0-0.6) 10^3/ul Absolute Basos (auto) 0 (0-0.2) 10^3/ul Absolute Nucleated RBC 0 10^3/ul Nucleated RBC % 0.2 Monoscreen Pending Result Diagrams: 07/02/18 13:23 07/02/18 13:23 Lab Statement: Any lab studies that have been ordered have been reviewed, and results considered in the medical decision making process. Course/Dx - Course Course Of Treatment: On arrival into the ED, patient appears fatigued, however otherwise well. He is nondiaphoretic and nontoxic appearing. Temp at 102.6 on arrival, heart rate 94, respirations 18, 90% on room air 145/73. Labs obtained and chest x-ray obtained which shows a RLL airspace opacification. This could represent a PNA. UA obtained which is negative. Color was yellow without signs of infection. Bryan obtained: this is negative. He is given tylenol 650mg and remains 1 hr later at 100.5. He appears slightly pale on re- examination and another 1 L fluids is ordered. Discussed case with Dr. Tabor. She will see him in the office Wednesday or Wednesday and has advised antibiotics for this possible PNA. I discussed with the family and patient extensively on very strict return precautions, rest, fluids and the importance of following up with PCP on Wednesday. I discussed the possibility that this may still be viral vs. other etiology which may need further workup. I have also advised a repeat chest x-ray in 3 days to assess for resolution. Patient states he will stay with family at this time. He will return to the ED for worsening fevers, back pain, BROWN, cough, congestion or urinary sxs. Mother at bedside voices understanding and is OK with DC. All questions and concerns were answered by the provider prior to DC. Blood cultures pending. - Febrile Illness Differential Diagnoses: Bacteremia, Fever of Unknown Origin, Pneumonia, Other: - Fever of unknown origin, viremia, bacteremia, pneumonia, pyelonephritis, abscess, infection, viral syndrome - Diagnoses Provider Diagnoses: Pneumonia, Fever - Provider Notifications Discussed Care Of Patient With: Lisseth Tabor Instructed by Provider To: Have Pt Call For Appt. - will see patient wednesday or wednesday Discharge - Sign-Out/Discharge Documenting (check all that apply): Patient Departure Patient Received Moderate/Deep Sedation with Procedure: No - Discharge Plan Condition: Stable Disposition: HOME Prescriptions: Azithromyxin EVARISTO (NF) [Z-Evaritso (Zithromax) 250 mg tabs #6] 2 tab PO .TODAY, THEN 1 DAILY #6 tab Patient Education Materials: Pneumonia (ED) Referrals: Chris Diaz MD [Primary Care Provider] - Additional Instructions: Please follow up with Dr. Tabor's office on Wednesday If you develop ANY WORSENING symptoms- you need to return to the ED Azithromycin - take 2 tabs today and 1 tab daily x 4 days As discussed, at this point we are treating this as a pneumonia You will need a close follow up and repeat xray to make sure this pneumonia has resolved. - Billing Disposition and Condition Condition: STABLE Disposition: Home
[2018-07-02 13:53] LABS: Albumin 4.6 g/dL (3.2-5.2); Albumin/Globulin Ratio 1.7 (1-3); Calcium 9.4 mg/dL (8.6-10.3); EGFR African American 81.7 (>60); EGFR Non-African American 67.5 (>60); Globulin 2.7 g/dL (2-4); Potassium 4.2 mmol/L (3.5-5.0); Total Bilirubin 0.7 mg/dL (0.2-1.0); Total Protein 7.3 g/dL (6.4-8.9)
[2018-07-02 15:39] LABS: Urine Appearance Clear; Urine Bilirubin Negative (Negative); Urine Blood Negative (Negative); Urine Color Yellow; Urine Glucose Negative (Negative); Urine Ketones Trace (Negative); Urine Nitrite Negative (Negative); Urine Protein Negative (Negative); Urine Specific Gravity 1.016 (1.010-1.030); Urine Urobilinogen Negative (Negative)
[2018-07-02 17:11] VITALS: BP 108/52
== END 2018-07-02 17:14 | disposition home or self-care (01) ==
LOC: ED 12:24
DX: J18.9 Pneumonia, unspecified organism (principal); R50.9 Fever, unspecified; Z88.1 Allergy status to other antibiotic agents; Z88.0 Allergy status to penicillin
CPT/HCPCS: 36415; 71046; 80053; 81003; 82550; 83605; 85025; 86140; 86308; 87040; 96360; 96361; 99283; A9270-GY

== ENCOUNTER 2019-04-13 17:22 | Emergency (ER) | payer BC, OTHER ==
[2019-04-13 17:34] VITALS: BP 131/78
--- NOTE | 2019-04-13 18:01 | UC ---
Pediatric Resp HPI - HPI Summary HPI Summary: 18 yo male presents with C/O fever x 3 days, max 102 tympanic, no runny nose, occasional cough, no vomiting/diarrhea, + zeny, + voids, no nrash Current meds naproxyn last PM [employer] Lives with girlfriend who had fever low grade 2 days ago - History Of Current Complaint Chief Complaint: KCCough Stated Complaint: DRY COUGH,FEVER, TIGHT CHEST - Allergies/Home Medications Allergies/Adverse Reactions: Allergies Allergy/AdvReac Type Severity Reaction Status Date / Time amoxicillin [From Augmentin] Allergy Unknown Verified 04/13/19 17:26 Reaction Details cefprozil Allergy Unknown Verified 04/13/19 17:26 Reaction Details clavulanic acid Allergy Unknown Verified 04/13/19 17:26 Reaction Details Home Medications: Home Medications NK [No Home Medications Reported] 04/13/19 [History Confirmed 04/13/19] Past Medical History Previously Healthy: Yes Respiratory History: Yes: Hx Pneumonia - x 1 in 06/2018 No: Hx Asthma GI/ History: No: Hx Gastroesophageal Reflux Disease, Hx Urinary Tract Infection Chronic Illness History: No: Seizures, Diabetes Other History: Has an alb MDI which he hasn't used for this illness - Surgical History Surgical History: None - Family History Family History: MGM Breast C/A Family History of Asthma: No Family History Of Seizure: No - Social History Lives With: girlfriend Child: Attends School - [employer] - Immunization History Immunizations Up to Date: Yes Date of Influenza Vaccine: 2018 Review Of Systems All Other Systems Reviewed And Are Negative: Yes Constitutional: Positive: Fever - x 3 days on/off, max 102 tympanic. Negative: Decreased Activity Eyes: Negative: Discharge, Redness ENT: Negative: Ear Pain, Mouth Pain, Throat Pain Cardiovascular: Negative: Cool Extremities Respiratory: Positive: Cough - occasional. Negative: Wheezing, Difficulty Breathing Gastrointestinal: Negative: Vomiting, Diarrhea, Poor Feeding Genitourinary: Negative: Dysuria, Decreased Urinary Frequency Musculoskeletal: Negative: Extremity Disuse, Swelling Skin: Negative: Rash Neurological: Negative: Irritability Physical Exam Triage Information Reviewed: Yes Vital Signs: Initial Vital Signs Temp 99.1 F 04/13/19 17:28 Pulse 58 04/13/19 17:28 Resp 12 04/13/19 17:28 BP 131/78 04/13/19 17:28 Pulse Ox 99 12/26/19 17:28 Vital Signs Reviewed: Yes Appearance: Well-Appearing - cooperative with exam, No Pain Distress, Well- Nourished Eyes: Negative: Discharge ENT: Positive: Hearing grossly normal, Pharynx normal - marked cobblestoning, Nasal congestion, TMs normal, Uvula midline. Negative: Nasal drainage, Tonsillar swelling, Tonsillar exudate, Trismus, Muffled voice Neck: Positive: Supple, Nontender, No Lymphadenopathy. Negative: Nuchal Rigidity Respiratory: Positive: Lungs clear, Normal breath sounds, No respiratory distress, No accessory muscle use. Negative: Decreased breath sounds, Crackles , Rhonchi, Wheezing Cardiovascular: Positive: RRR, No Murmur, Pulses Normal, Brisk Capillary Refill Abdomen Description: Positive: Nontender, No Organomegaly, Soft Musculoskeletal: Positive: Strength Intact, ROM Intact, No Edema Neurological: Positive: Alert, Muscle Tone Normal Psychological: Positive: Age Appropriate Behavior Skin: Negative: Rashes, Significant Lesion(s) Diagnostics - Laboratory Lab Results: Laboratory Results - last 24 hr 04/13/19 18:15 Influenza A (Rapid) Negative Influenza B (Rapid) Negative Re-Evaluation - Re-Evaluation First Eval Re-Evaluation Time: 19:10 Change: Improved Comment: BS = clear bilat, increased aeration, decreased cough, no wheezing Pediatric Resp Course/Dx - Differential Dx/Diagnosis Provider Diagnosis: Fever, Mild intermittent asthma, URI, acute Discharge ED - Sign-Out/Discharge Documenting (check all that apply): Patient Departure All imaging exams completed and their final reports reviewed: No Studies - Discharge Plan Condition: Good Disposition: HOME Patient Education Materials: Fever in Children (ED), Asthma in Children (ED), Upper Respiratory Infection in Children (ED) Referrals: Chris Diaz MD [Primary Care Provider] - Additional Instructions: increase fluids albuterol MDI with aerochamber 2 puffs every 4 hours while awake til recheck tylenol/ibuprofen as needed follow up in office in 2-3 days for recheck - Billing Disposition and Condition Condition: GOOD Disposition: Home
[2019-04-13] MEDS: Albuterol 2.5 MG/3 ML NEB.SOL* (0.083%) INH ONE (18:43)
[2019-04-13 18:44] LABS: Influenza A Molecular NEGATIVE (Negative); Influenza B Molecular NEGATIVE (Negative)
== END 2019-04-13 19:24 | disposition home or self-care (01) ==
LOC: UCKC 17:22
DX: J06.9 Acute upper respiratory infection, unspecified (principal); J45.20 Mild intermittent asthma, uncomplicated; Z88.0 Allergy status to penicillin; Z88.1 Allergy status to other antibiotic agents
CPT/HCPCS: 99212; 99214; G0463